=== PATIENT | male | born 1940 | race Caucasian/White ===

== ENCOUNTER 2022-08-18 10:38 | Inpatient (IN) | payer MEDICARE, OTHER ==
[~2022-08-18] VITALS: Ht 177.8 cm; Wt 84.0 kg
[~2022-08-18 10:38] MED LIST: ASPI-1265 PO; CYAN500T71 PO; GLUC1CAP17 PO; IRON PO; LISI2.5T14 PO; OMEP20TA43 PO; POLY17PO10 PO; ROSU40TA PO; VITA200T6 PO; ZET10T PO; ZINC50TA37 PO
[2022-08-18 10:59] LABS: BASOPHILS # (AUTO) 0.1 X10'3 (0-0.2); BASOPHILS % (AUTO) 1.3 % (0-1); EOSINOPHILS # (AUTO) 0.4 X10'3 (0-0.9); EOSINOPHILS % (AUTO) 6.1 % (0-6); HEMATOCRIT 35.8 % (42.0-52.0); HEMOGLOBIN 11.7 g/dl (14.0-17.9); LYMPHOCYTES # (AUTO) 0.8 X10'3 (1.1-4.8); LYMPHOCYTES % (AUTO) 14.1 % (21-51); MEAN CORPUSCULAR HGB CONC 32.7 g/dL (33.0-36.5); MEAN CORPUSCULAR VOLUME 91.9 FL (78-98); MEAN PLATELET VOLUME 7.2 FL (7.4-10.4); MONOCYTES # (AUTO) 0.8 X10'3 (0-0.9); MONOCYTES % (AUTO) 13.4 % (2-12); NEUTROPHILS # (AUTO) 3.9 X10'3 (1.8-7.7); NEUTROPHILS % (AUTO) 65.1 % (42-75); PLATELET COUNT 341 X10'3 (140-440); RED BLOOD COUNT 3.89 X10'6 (4.70-6.10); RED CELL DISTRIBUTION WIDTH 15.4 % (11.5-14.5)
[2022-08-18 11:33] LABS: ALANINE AMINOTRANSFERASE 32 U/L (12-78); ALBUMIN 3.8 G/DL (3.4-5.0); ALBUMIN/GLOBULIN RATIO 1.3 (1.1-1.5); ALKALINE PHOSPHATASE 56 IU/L (46-116); ANION GAP 6 (8-16); ASPARTATE AMINO TRANSFERASE 23 U/L (10-37); BILIRUBIN,TOTAL 0.8 MG/DL (0.1-1.0); BLOOD UREA NITROGEN 28 MG/DL (7-18); BUN/CREATININE RATIO 21.1 (5.4-32.0); CALCIUM 9.3 MG/DL (8.5-10.1); CHLORIDE 106 MMOL/L (99-107); CREATININE 1.33 MG/DL (0.60-1.10); GLUCOSE 113 MG/DL (70-104); MAGNESIUM 2.1 MG/DL (1.5-2.4); POTASSIUM 4.4 MMOL/L (3.5-5.1); SODIUM 141 MMOL/L (135-145); TOTAL PROTEIN 6.8 G/DL (6.4-8.2); eGFR 51 ML/MIN
[2022-08-18] MEDS ORDERED: magnesium Cl slow-release 64mg tablet PO PRN (13:00)
[2022-08-18] MEDS ORDERED: HYDROcodone/acetaminophen 5mg/325mg tablet PO PRN (13:00)
[2022-08-18] MEDS ORDERED: magnesium 4gm in 100ml NS 100 ML IV PRN (13:00)
[2022-08-18] MEDS ORDERED: potassium Cl 40MEQ/1/2NS 520ml 520 ML IV PRN (13:00)
[2022-08-18] MEDS ORDERED: potassium Cl 20 mEq SR tablet PO PRN ×2 (13:00)
[2022-08-18] MEDS ORDERED: ondansetron/PF 4mg/2ml inj IV PRN (13:00)
[2022-08-18] MEDS ORDERED: acetaminophen 325mg tablet PO PRN ×2 (13:00)
[2022-08-18] MEDS ORDERED: RIVA20TA PO (13:12)
[2022-08-18 13:16] LABS: D-DIMER 0.85 MG/L FEU (0-0.50)
[2022-08-18] MEDS ORDERED: morphine 2 MG/ML inj. syringe IV PRN (13:47)
[2022-08-18] MEDS ORDERED: diltiazem-NS 100mg/100ml 100 ML IV SCH (13:57)
--- NOTE | 2022-08-18 17:37 | NUR ---
Patient in room ED 4. I have received report from Reinaldo MARTINI and had the opportunity to ask questions and assume patient care.
--- NOTE | 2022-08-18 18:35 | NUR ---
Problems reprioritized. Patient report given, questions answered & plan of care reviewed with Mehul MARTINI.
[2022-08-18] MEDS ORDERED: heparin, porcine 5000 units/ml vial SQ SCH (20:00)
--- NOTE | 2022-08-18 20:04 | NUR ---
STARCH FACTORY LABORER REPORTS THAT THE PATIENT'S BP HAS BEEN RUNNING LOW 93/37 AND HR FLUCTUATES FROM BABITA TO TACHY. THE PATIENT'S BP CUFF HAS BEEN CHANGED AND BP RETAKEN AND IS IN NORMAL RANGE. HR WILL BE MONITORED FOR FURTHER ACTION REQUIRED. CARDIZEM DRIP CONTINUES WITHOUT INTERRUPTION. THE PATIENT DENIES ANY PAIN OR DISCOMFORT AT THIS TIME.
[2022-08-18 20:17] VITALS: BP 102/58
[2022-08-18 20:45] VITALS: BP 83/30
[2022-08-18 20:55] VITALS: BP 80/34
--- NOTE | 2022-08-18 21:07 | NUR ---
Bp results 80/34. HR 75. Dr. Badillo discontinued the cardizem drip. EKG completed, abnormal result, placed into the chart. Patient is asymptomatic. Denies discomfort or dizziness.
--- NOTE | 2022-08-19 03:24 | NUR ---
Report was received by LIANET Wild
[2022-08-19 06:00] VITALS: BP 119/47
[2022-08-19 06:29] LABS: BASOPHILS # (AUTO) 0.1 X10'3 (0-0.2); BASOPHILS % (AUTO) 1.6 % (0-1); EOSINOPHILS # (AUTO) 0.3 X10'3 (0-0.9); EOSINOPHILS % (AUTO) 7.5 % (0-6); HEMOGLOBIN 10.6 g/dl (14.0-17.9); LYMPHOCYTES # (AUTO) 0.7 X10'3 (1.1-4.8); LYMPHOCYTES % (AUTO) 15.3 % (21-51); MEAN CORPUSCULAR HEMOGLOBIN 31.3 PG (27.0-31.0); MEAN CORPUSCULAR HGB CONC 34.2 g/dL (33.0-36.5); MEAN CORPUSCULAR VOLUME 91.4 FL (78-98); MEAN PLATELET VOLUME 7.4 FL (7.4-10.4); MONOCYTES # (AUTO) 0.7 X10'3 (0-0.9); MONOCYTES % (AUTO) 16.6 % (2-12); NEUTROPHILS # (AUTO) 2.5 X10'3 (1.8-7.7); PLATELET COUNT 277 X10'3 (140-440); RED BLOOD COUNT 3.39 X10'6 (4.70-6.10); RED CELL DISTRIBUTION WIDTH 15.3 % (11.5-14.5); WHITE BLOOD COUNT 4.3 X10'3 (4.5-11.0)
--- NOTE | 2022-08-19 06:37 | NUR ---
Patient in room PCU 3018A. I have received report from Liz RN and had the opportunity to ask questions and assume patient care. Pt is laying supine in bed, resting comfortably. Pt on RA. No s/s of distress, no s/s of pain. BLL, call light within reach, frequently used items in reach, frequent rounding, lubrication worker socks on. Will continue to monitor.
[2022-08-19 06:48] LABS: ALANINE AMINOTRANSFERASE 25 U/L (12-78); ALBUMIN 3.3 G/DL (3.4-5.0); ALBUMIN/GLOBULIN RATIO 1.2 (1.1-1.5); ALKALINE PHOSPHATASE 44 IU/L (46-116); ANION GAP 5 (8-16); ASPARTATE AMINO TRANSFERASE 24 U/L (10-37); BILIRUBIN,TOTAL 0.7 MG/DL (0.1-1.0); BLOOD UREA NITROGEN 30 MG/DL (7-18); BUN/CREATININE RATIO 25.4 (5.4-32.0); CALCIUM 8.9 MG/DL (8.5-10.1); CHLORIDE 105 MMOL/L (99-107); CREATININE 1.18 MG/DL (0.60-1.10); GLUCOSE 101 MG/DL (70-104); POTASSIUM 4.5 MMOL/L (3.5-5.1); SODIUM 140 MMOL/L (135-145); TOTAL CARBON DIOXIDE 29.7 MMOL/L (24-32); eGFR 59 ML/MIN
[2022-08-19 07:23] LABS: ANISOCYTOSIS 1+; PLATELET ESTIMATE NORMAL; TOTAL CELLS COUNTED 100
--- NOTE | 2022-08-19 16:33 | NUR ---
Pt DC'd to personal vehicle, is driving. VSS, pt afebrile, no issues with medication. PIV to RFA removed tip intact, no c/o pain. Discharge education provided, all questioned answered.
[2022-08-19] MEDS ORDERED: rivaroxaban 20mg tablet PO SCH (18:00)
[2022-08-19] MEDS ORDERED: pantoprazole 40mg Tablet.DR PO SCH (20:00)
[2022-08-19] MEDS ORDERED: lisinopril 2.5mg tablet PO SCH (21:00)
[2022-08-19] MEDS ORDERED: atorvastatin 20mg tablet PO SCH (21:00)
[2022-08-20] MEDS ORDERED: aspirin 81mg tab.chew PO SCH (08:00)
== END 2022-08-19 14:44 | disposition home or self-care (01) | DRG 310 ==
LOC: ER 10:39 → ED HOLD 13:01 → EDBEDREQ 16:52 → PCU 3S 17:46
PROVIDERS: ADMIT Internal Medicine; ATTEND Internal Medicine
DX: I48.91 Unspecified atrial fibrillation (principal); E78.00 Pure hypercholesterolemia, unspecified; I10 Essential (primary) hypertension; I25.10 Atherosclerotic heart disease of native coronary artery without angina pectoris; Z66 Do not resuscitate; I65.29 Occlusion and stenosis of unspecified carotid artery; I73.9 Peripheral vascular disease, unspecified; Z79.01 Long term (current) use of anticoagulants; I25.2 Old myocardial infarction; Z87.891 Personal history of nicotine dependence; Z95.1 Presence of aortocoronary bypass graft; Z79.899 Other long term (current) drug therapy; Z79.82 Long term (current) use of aspirin
CPT/HCPCS: 36415; 71045; 80053; 83735; 83880; 84484; 85007; 85025; 85379; 93005; 93306; 99285; A4615; G0378; J1644; J3490

== ENCOUNTER 2022-09-28 10:04 | Outpatient (CLI) | payer MEDICARE, OTHER ==
[~2022-09-28 10:04] MED LIST changes: +RIVA20TA PO
[2022-09-28 11:15] LABS: BASOPHILS # (AUTO) 0.1 X10'3 (0-0.2); EOSINOPHILS # (AUTO) 0.3 X10'3 (0-0.9); EOSINOPHILS % (AUTO) 3.9 % (0-6); HEMOGLOBIN 11.4 g/dl (14.0-17.9); LYMPHOCYTES # (AUTO) 0.8 X10'3 (1.1-4.8); LYMPHOCYTES % (AUTO) 10.8 % (21-51); MEAN CORPUSCULAR HEMOGLOBIN 29.6 PG (27.0-31.0); MEAN CORPUSCULAR HGB CONC 33.6 g/dL (33.0-36.5); MEAN CORPUSCULAR VOLUME 88.2 FL (78-98); MONOCYTES # (AUTO) 0.8 X10'3 (0-0.9); MONOCYTES % (AUTO) 11.4 % (2-12); NEUTROPHILS # (AUTO) 5.2 X10'3 (1.8-7.7); NEUTROPHILS % (AUTO) 72.9 % (42-75); PLATELET COUNT 569 X10'3 (140-440); RED BLOOD COUNT 3.85 X10'6 (4.70-6.10); RED CELL DISTRIBUTION WIDTH 14.8 % (11.5-14.5); WHITE BLOOD COUNT 7.1 X10'3 (4.5-11.0)
[2022-09-28 11:29] LABS: ALBUMIN 3.4 G/DL (3.4-5.0); ANION GAP 9 (8-16); CHLORIDE 101 MMOL/L (99-107); GLUCOSE 115 MG/DL (70-104); POTASSIUM 4.6 MMOL/L (3.5-5.1); SODIUM 138 MMOL/L (135-145); TOTAL CARBON DIOXIDE 28.4 MMOL/L (24-32); eGFR 39 ML/MIN
[2022-09-28 11:30] LABS: APTT 31 SECONDS (22-32); BLOOD UREA NITROGEN 44 MG/DL (7-18); BUN/CREATININE RATIO 25.9 (10.0-20.0)
== END 2022-09-28 23:59 | disposition home or self-care (01) ==
LOC: LAB 10:04 → EDSTATUS 10-02 15:30
PROVIDERS: ATTEND Student in an Organized Health Care Education/Training Program
DX: I25.810 Atherosclerosis of coronary artery bypass graft(s) without angina pectoris (principal); I48.91 Unspecified atrial fibrillation; I65.23 Occlusion and stenosis of bilateral carotid arteries; I48.19 Other persistent atrial fibrillation; E78.5 Hyperlipidemia, unspecified
CPT/HCPCS: 36415; 80048; 85025; 85610; 85730; 92960; A4620; J7030

== ENCOUNTER 2023-04-21 09:39 | Emergency (ER) | payer MEDICARE, OTHER ==
[~2023-04-21] VITALS: Ht 177.8 cm; Wt 84.1 kg
[~2023-04-21 09:39] MED LIST changes: -ASPI-1265 PO; +FERR-116 PO; -IRON PO; -LISI2.5T14 PO; -OMEP20TA43 PO; +SOTA80TA73 PO; +[UNRECOGNIZED DRUG - CODE] PO
[2023-04-21 09:49] VITALS: BP 162/57; PULSE 58; TEMP 97.5; O2SAT 98
--- NOTE | 2023-04-21 10:37 | NUR ---
[facility] NOTIFIED @[id number] THAT I PLACED PT IN RM 12 AND PT STILL NEEDING MSE DONE. KIM
[2023-04-21] MEDS ORDERED: ketorolac tromethamine 15mg/ml inj. IM ONE (11:55)
[2023-04-21] MEDS ORDERED: NAPR-56 PO (11:55)
[2023-04-21 12:10] VITALS: RESP 18
--- NOTE | 2023-04-21 13:22 | NUR ---
INFRASTRUCTURE TECHNICIAN ASSESSMENT REVIEWED BY CELINA LIMON RN; APPROVED
== END 2023-04-21 12:16 | disposition home or self-care (01) ==
LOC: ER 09:39
DX: M79.674 Pain in right toe(s) (principal); I11.0 Hypertensive heart disease with heart failure; Z79.899 Other long term (current) drug therapy
CPT/HCPCS: 96372; 99283; J1885

== ENCOUNTER 2023-04-24 03:57 | Emergency (ER) | payer MEDICARE, OTHER ==
[~2023-04-24] VITALS: Ht 177.8 cm; Wt 85.3 kg
[~2023-04-24 03:57] MED LIST changes: +NAPR-56 PO
[2023-04-24 04:03] VITALS: BP 180/100; PULSE 73; RESP 16; TEMP 98.4; O2SAT 98
== END 2023-04-24 08:06 | disposition left against medical advice (07) ==
LOC: ER 03:58
DX: M79.671 Pain in right foot (principal); Z53.21 Procedure and treatment not carried out due to patient leaving prior to being seen by health care provider
CPT/HCPCS: 99281

== ENCOUNTER 2024-01-17 07:08 | Day surgery (SDC) | payer MEDICARE, OTHER ==
[~2024-01-17] VITALS: Ht 177.8 cm; Wt 82.7 kg
[~2024-01-17 07:08] MED LIST changes: -NAPR-56 PO
[2024-01-17 07:34] VITALS: BP 145/58; PULSE 72; RESP 16
[2024-01-17] MEDS ORDERED: GABA-530 PO (07:40)
[2024-01-17] MEDS ORDERED: ASCO500C14 PO (07:41)
[2024-01-17] MEDS ORDERED: POTA-205 PO (07:42)
[2024-01-17] MEDS ORDERED: Vitamin D3 PO (07:45)
[2024-01-17] MEDS ORDERED: diphenhydrAMINE 50 mg/ml inj ONE (08:11)
[2024-01-17] MEDS ORDERED: MIDAZolam 1 MG/ML 5ML VIAL ONE (08:19)
[2024-01-17] MEDS ORDERED: fentaNYL/PF 50MCG/1 ML 2ML syringe ONE (08:19)
== END 2024-01-17 09:56 | disposition home or self-care (01) ==
LOC: GI LAB 07:08
PROVIDERS: ATTEND Internal Medicine Gastroenterology
DX: R19.5 Other fecal abnormalities (principal); K57.30 Diverticulosis of large intestine without perforation or abscess without bleeding; K29.70 Gastritis, unspecified, without bleeding
CPT/HCPCS: 43239; 45378; 99153; A4620; G0500; J1200; J2250; J3010; J7030; Z7512; 88305; 99152

== ENCOUNTER 2024-09-15 09:33 | Inpatient (IN) | payer MEDICARE, OTHER ==
[~2024-09-15] VITALS: Ht 177.8 cm; Wt 86.0 kg
[~2024-09-15 09:33] MED LIST changes: +ASCO500C14 PO; +GABA-530 PO; -POLY17PO10 PO; +POTA-205 PO; -VITA200T6 PO; +Vitamin D3 PO; -[UNRECOGNIZED DRUG - CODE] PO
[2024-09-15] MEDS: morphine 4 MG/ML inj SYRINge ONE (09:51)
[2024-09-15] MEDS: morphine 4 MG/ML inj SYRINge IV ONE (09:51)
[2024-09-15] MEDS: morphine 10mg/ml inj. IV ONE (10:31)
[2024-09-15] MEDS: ondansetron/PF 4mg/2ml inj IV ONE (10:33)
[2024-09-15 10:41] LABS: BASOPHILS # (AUTO) 0.1 X10'3 (0-0.2); EOSINOPHILS # (AUTO) 0.1 X10'3 (0-0.9); EOSINOPHILS % (AUTO) 1.4 % (0-6); HEMATOCRIT 38.9 % (42.0-52.0); HEMOGLOBIN 12.6 g/dl (14.0-17.9); LYMPHOCYTES # (AUTO) 0.5 X10'3 (1.1-4.8); LYMPHOCYTES % (AUTO) 8.9 % (21-51); MEAN CORPUSCULAR HGB CONC 32.4 g/dL (33.0-36.5); MEAN CORPUSCULAR VOLUME 95.7 FL (78-98); MEAN PLATELET VOLUME 7.1 FL (7.4-10.4); MONOCYTES # (AUTO) 0.7 X10'3 (0-0.9); MONOCYTES % (AUTO) 11.2 % (2-12); NEUTROPHILS # (AUTO) 4.7 X10'3 (1.8-7.7); NEUTROPHILS % (AUTO) 77.5 % (42-75); PLATELET COUNT 276 X10'3 (140-440); RED BLOOD COUNT 4.07 X10'6 (4.70-6.10); RED CELL DISTRIBUTION WIDTH 16.5 % (11.5-14.5)
[2024-09-15] MEDS ORDERED: ondansetron/PF 4mg/2ml inj IV PRN (10:45)
[2024-09-15] MEDS ORDERED: magnesium hydroxide 30ml (MOM) UD suspension PO PRN (10:45)
[2024-09-15] MEDS ORDERED: hydrALAZINE 20mg/ml inj. IV PRN (10:45)
[2024-09-15] MEDS ORDERED: magnesium sulf-water 2g/50mL 50 ML IV PRN (10:45)
[2024-09-15] MEDS ORDERED: magnesium sulf-water 4G/100mL 100 ML IV PRN (10:45)
[2024-09-15] MEDS ORDERED: potassium Cl 40MEQ/1/2NS 520ml 520 ML IV PRN (10:45)
[2024-09-15] MEDS ORDERED: HYDROcodone/acetaminophen 5mg/325mg tablet PO PRN (10:45)
[2024-09-15] MEDS ORDERED: acetaminophen 325mg tablet PO PRN ×2 (10:45)
[2024-09-15] MEDS ORDERED: potassium Cl 20 mEq SR tablet PO PRN ×2 (10:45)
[2024-09-15] MEDS ORDERED: HYDROmorphone/PF 0.2 MG/ML SYRINGE IV PRN (10:45)
[2024-09-15 10:57] LABS: APTT 27 SECONDS (22-32); INR 1.2 INR; PROTHROMBIN TIME 12.2 SECONDS (9.0-12.0)
[2024-09-15 11:00] LABS: ALBUMIN 3.8 G/DL (3.4-5.0); ANION GAP 9 (8-16); BLOOD UREA NITROGEN 30 MG/DL (7-18); BUN/CREATININE RATIO 20.4 (10.0-20.0); CALCIUM 8.6 MG/DL (8.5-10.1); CHLORIDE 102 MMOL/L (99-107); CREATININE 1.47 MG/DL (0.60-1.10); GLUCOSE 108 MG/DL (70-104); POTASSIUM 4.9 MMOL/L (3.5-5.1); SODIUM 137 MMOL/L (135-145); TOTAL CARBON DIOXIDE 26.4 MMOL/L (24-32); eCRCL 39 ML/MIN; eGFR 46 ML/MIN
[2024-09-15] MEDS: normal saline 1000ml 1,000 ML IV SCH (11:46)
[2024-09-15] MEDS ORDERED: EZET10TA48 PO (11:54)
[2024-09-15] MEDS ORDERED: ROSU40TA89 PO (11:54)
[2024-09-15] MEDS ORDERED: PRED20TA PO (11:54)
[2024-09-15] MEDS: HYDROmorphone inj. 0.5 MG/0.5 ML DISP.SYRIN IV PRN (12:16)
[2024-09-15] MEDS: HYDROcodone/acetaminophen 10/325mg tab PO PRN (12:55)
[2024-09-15 16:36] VITALS: RESP 18; O2SAT 97
[2024-09-15] MEDS: LidoCAINE 2% Topical Jelly 11mL syringe (UROJET) TOP STA (17:05)
[2024-09-15] MEDS: HYDROmorphone 1 mg/ml syringe IV STA (17:05)
[2024-09-15 17:18] VITALS: O2SAT 97
[2024-09-15 17:20] VITALS: BP 141/61; PULSE 95; RESP 18; TEMP 98.1; O2SAT 98
[2024-09-15 18:00] VITALS: BP 141/61; PULSE 95; RESP 16; TEMP 98.1; O2SAT 98
[2024-09-15] MEDS: docusate sod 100mg capsule PO SCH (19:00)
[2024-09-15 19:11] LABS: BILIRUBIN,URINE NEGATIVE (Neg); CLARITY,URINE CLEAR (Clear); COLOR,URINE YELLOW (Yellow); GLUCOSE, URINE NEGATIVE (Neg); KETONES,URINE NEGATIVE (Neg); LEUKOCYTE ESTERASE ,URINE NEGATIVE (Neg); NITRITES, URINE NEGATIVE (Neg); OCCULT BLOOD,URINE NEGATIVE (Neg); PROTEIN,URINE 30 mg/dl (Neg); UROBILINOGEN,URINE 0.2 E.U/dL (0.2-1.0)
[2024-09-15 19:13] LABS: UA COLLECTION TYPE CLN CATCH MIDSTREAM
[2024-09-15 19:15] LABS: BACTERIA,URINE FEW /HPF (Neg); RBC,URINE 0-2 /HPF (0-2); SQUAMOUS EPITHELIAL CELL,UR FEW /LPF (FEW); WBC,URINE 0-4 /HPF (0-4)
[2024-09-15] MEDS: K and/or MAG REPLACEMENT MC SCH (20:00)
[2024-09-15 22:00] VITALS: BP 117/64; PULSE 98; RESP 16; TEMP 97.3; O2SAT 98
[2024-09-15] MEDS: atorvastatin 20mg tablet PO SCH (23:15)
[2024-09-15] MEDS: gabapentin 100mg capsule PO SCH (23:16)
[2024-09-15] MEDS: ezetimibe 10mg tablet PO SCH (23:16)
[2024-09-16] VITALS (23 sets, daily range): BP systolic 99–159; BP diastolic 64–82; PULSE 81–99; RESP 12–18; TEMP 97.1–97.8; O2SAT 90–100
[2024-09-16] MEDS: HYDROmorphone 1 mg/ml syringe IV PRN (02:33)
[2024-09-16 05:58] LABS: BASOPHILS % (AUTO) 0.4 % (0-1); EOSINOPHILS % (AUTO) 0.6 % (0-6); HEMATOCRIT 35.3 % (42.0-52.0); HEMOGLOBIN 11.5 g/dl (14.0-17.9); LYMPHOCYTES # (AUTO) 0.4 X10'3 (1.1-4.8); LYMPHOCYTES % (AUTO) 4.9 % (21-51); MEAN CORPUSCULAR HEMOGLOBIN 31.4 PG (27.0-31.0); MEAN CORPUSCULAR HGB CONC 32.5 g/dL (33.0-36.5); MEAN CORPUSCULAR VOLUME 96.6 FL (78-98); MEAN PLATELET VOLUME 7.3 FL (7.4-10.4); MONOCYTES # (AUTO) 0.9 X10'3 (0-0.9); MONOCYTES % (AUTO) 10.6 % (2-12); NEUTROPHILS # (AUTO) 6.9 X10'3 (1.8-7.7); NEUTROPHILS % (AUTO) 83.5 % (42-75); PLATELET COUNT 238 X10'3 (140-440); RED BLOOD COUNT 3.66 X10'6 (4.70-6.10); RED CELL DISTRIBUTION WIDTH 16.3 % (11.5-14.5); WHITE BLOOD COUNT 8.3 X10'3 (4.5-11.0)
[2024-09-16 06:21] LABS: ALANINE AMINOTRANSFERASE 34 U/L (12-78); ALBUMIN 3.2 G/DL (3.4-5.0); ALBUMIN/GLOBULIN RATIO 1.1 (1.1-1.5); ALKALINE PHOSPHATASE 48 IU/L (46-116); ANION GAP 8 (8-16); ASPARTATE AMINO TRANSFERASE 18 U/L (10-37); BILIRUBIN,TOTAL 1.2 MG/DL (0.1-1.0); BLOOD UREA NITROGEN 26 MG/DL (7-18); BUN/CREATININE RATIO 22.6 (10.0-20.0); CALCIUM 8.5 MG/DL (8.5-10.1); CHLORIDE 102 MMOL/L (99-107); CREATININE 1.15 MG/DL (0.60-1.10); GLUCOSE 122 MG/DL (70-104); MAGNESIUM 1.9 MG/DL (1.5-2.4); POTASSIUM 4.9 MMOL/L (3.5-5.1); SODIUM 137 MMOL/L (135-145); TOTAL CARBON DIOXIDE 27.2 MMOL/L (24-32); TOTAL PROTEIN 6.2 G/DL (6.4-8.2); eCRCL 49 ML/MIN; eGFR 61 ML/MIN
[2024-09-16] MEDS ORDERED: labetalol 20mg/4ml (5mg/ml) syringe IV PRN (07:20)
[2024-09-16] MEDS ORDERED: proCHLORperazine 10 MG/2 ml inj IV PRN (07:20)
[2024-09-16] MEDS ORDERED: hydrALAZINE 20mg/ml inj. IV PRN (07:20)
[2024-09-16] MEDS ORDERED: morphine 2 MG/ML inj. syringe IV PRN (07:20)
[2024-09-16] MEDS ORDERED: meperidine/PF 25mg/ml syringe IV PRN (07:20)
[2024-09-16] MEDS ORDERED: ondansetron/PF 4mg/2ml inj IV PRN (07:20)
[2024-09-16] MEDS ORDERED: HYDROmorphone/PF 0.2 MG/ML SYRINGE IV PRN ×2 (07:20)
[2024-09-16] MEDS ORDERED: sevoflurane 250ml liquid IH ONE (07:36)
[2024-09-16] MEDS ORDERED: midazolam 1 mg/ML 2ml injection ONE (07:40)
[2024-09-16] MEDS ORDERED: fentaNYL/PF 50MCG/1 ML 2ML syringe ONE (07:40)
[2024-09-16] MEDS ORDERED: ePHEDrine 50MG/ML INJ. ONE (07:57)
[2024-09-16] MEDS ORDERED: 0.9 % SODIUM CHLORIDE 10 ML VIAL ONE (07:57)
[2024-09-16] MEDS ORDERED: propofol inj 20 ML IV ONE (07:57)
[2024-09-16] MEDS ORDERED: LIDOcaine 2% (20mg/ml) 5ml vial ONE (07:57)
[2024-09-16] MEDS ORDERED: dexamethasone sod phosphate 4mg/ml inj. ONE (07:57)
[2024-09-16] MEDS: cyanocobalamin 500mcg tablet PO SCH (08:00)
[2024-09-16] MEDS: ferrous sulfate 325mg tablet PO SCH (08:00)
[2024-09-16] MEDS: ascorbic acid 500mg tablet PO SCH (08:00)
[2024-09-16] MEDS: zinc sulfate 220mg capsule PO SCH (08:00)
[2024-09-16] MEDS: potassium chloride 10mEq ER tablet PO SCH (08:00)
[2024-09-16] MEDS: sotalol HCl 40mg (1/2 tablet) PO SCH (08:00)
[2024-09-16] MEDS ORDERED: ceFAZolin 1000mg inj ONE ×3 (08:09→09:43)
[2024-09-16] MEDS ORDERED: ondansetron/PF 4mg/2ml inj ONE (08:13)
[2024-09-16] MEDS: morphine 4 MG/ML inj SYRINge IV PRN (10:25)
[2024-09-16] MEDS: acetaminophen 1,000mg/100ml IV 100 ML IV PRN (10:26)
[2024-09-16] MEDS: ringers solution, lacted 1,000 ML IV SCH (13:48)
[2024-09-16] MEDS: calcium carbonate 500mg chew tablet PO PRN (17:35)
[2024-09-16] MEDS: mag hydrox/Alum hydrox/simeth 30ml oral suspension PO PRN (20:40)
[2024-09-16] MEDS: rivaroxaban 20mg tablet PO SCH (21:35)
[2024-09-17] VITALS (7 sets, daily range): BP systolic 87–120; BP diastolic 49–68; PULSE 62–90; RESP 14–18; TEMP 97.2–98.9; O2SAT 93–99
[2024-09-17 07:05] LABS: BASOPHILS % (AUTO) 0.2 % (0-1); EOSINOPHILS % (AUTO) 0.1 % (0-6); HEMOGLOBIN 8.7 g/dl (14.0-17.9); LYMPHOCYTES # (AUTO) 0.4 X10'3 (1.1-4.8); LYMPHOCYTES % (AUTO) 5.1 % (21-51); MEAN CORPUSCULAR HEMOGLOBIN 31.7 PG (27.0-31.0); MEAN CORPUSCULAR HGB CONC 33.6 g/dL (33.0-36.5); MEAN CORPUSCULAR VOLUME 94.3 FL (78-98); MEAN PLATELET VOLUME 7.5 FL (7.4-10.4); MONOCYTES # (AUTO) 1.2 X10'3 (0-0.9); MONOCYTES % (AUTO) 14.4 % (2-12); NEUTROPHILS # (AUTO) 6.6 X10'3 (1.8-7.7); NEUTROPHILS % (AUTO) 80.2 % (42-75); PLATELET COUNT 203 X10'3 (140-440); RED BLOOD COUNT 2.76 X10'6 (4.70-6.10); RED CELL DISTRIBUTION WIDTH 15.8 % (11.5-14.5); WHITE BLOOD COUNT 8.2 X10'3 (4.5-11.0)
[2024-09-17 07:19] LABS: ALANINE AMINOTRANSFERASE 25 U/L (12-78); ALBUMIN 2.4 G/DL (3.4-5.0); ALBUMIN/GLOBULIN RATIO 0.8 (1.1-1.5); ALKALINE PHOSPHATASE 38 IU/L (46-116); ANION GAP 3 (8-16); ASPARTATE AMINO TRANSFERASE 14 U/L (10-37); BLOOD UREA NITROGEN 24 MG/DL (7-18); BUN/CREATININE RATIO 24.5 (10.0-20.0); CALCIUM 7.9 MG/DL (8.5-10.1); CHLORIDE 102 MMOL/L (99-107); CREATININE 0.98 MG/DL (0.60-1.10); GLUCOSE 114 MG/DL (70-104); MAGNESIUM 1.7 MG/DL (1.5-2.4); POTASSIUM 4.5 MMOL/L (3.5-5.1); SODIUM 135 MMOL/L (135-145); TOTAL CARBON DIOXIDE 30.1 MMOL/L (24-32); TOTAL PROTEIN 5.3 G/DL (6.4-8.2); eCRCL 58 ML/MIN; eGFR 73 ML/MIN
[2024-09-17 13:10] LABS: HEMATOCRIT 30.6 % (42.0-52.0); HEMOGLOBIN 10.2 g/dl (14.0-17.9); MEAN CORPUSCULAR HEMOGLOBIN 31.9 PG (27.0-31.0); MEAN CORPUSCULAR HGB CONC 33.2 g/dL (33.0-36.5); MEAN CORPUSCULAR VOLUME 96.1 FL (78-98); MEAN PLATELET VOLUME 7.7 FL (7.4-10.4); PLATELET COUNT 218 X10'3 (140-440); RED BLOOD COUNT 3.18 X10'6 (4.70-6.10); RED CELL DISTRIBUTION WIDTH 16.2 % (11.5-14.5); WHITE BLOOD COUNT 10.4 X10'3 (4.5-11.0)
[2024-09-18 06:00] VITALS: BP 112/46; PULSE 62; RESP 16; TEMP 98.6; O2SAT 93
[2024-09-18 07:35] LABS: BASOPHILS # (AUTO) 0.1 X10'3 (0-0.2); BASOPHILS % (AUTO) 0.8 % (0-1); EOSINOPHILS # (AUTO) 0.1 X10'3 (0-0.9); EOSINOPHILS % (AUTO) 1.4 % (0-6); HEMATOCRIT 28.8 % (42.0-52.0); HEMOGLOBIN 9.5 g/dl (14.0-17.9); LYMPHOCYTES # (AUTO) 0.7 X10'3 (1.1-4.8); LYMPHOCYTES % (AUTO) 9.1 % (21-51); MEAN CORPUSCULAR HEMOGLOBIN 31.4 PG (27.0-31.0); MEAN CORPUSCULAR HGB CONC 32.9 g/dL (33.0-36.5); MEAN CORPUSCULAR VOLUME 95.3 FL (78-98); MEAN PLATELET VOLUME 7.6 FL (7.4-10.4); MONOCYTES # (AUTO) 1.2 X10'3 (0-0.9); MONOCYTES % (AUTO) 14.5 % (2-12); NEUTROPHILS # (AUTO) 5.9 X10'3 (1.8-7.7); NEUTROPHILS % (AUTO) 74.2 % (42-75); PLATELET COUNT 239 X10'3 (140-440); RED BLOOD COUNT 3.02 X10'6 (4.70-6.10); RED CELL DISTRIBUTION WIDTH 16.3 % (11.5-14.5)
[2024-09-18 08:03] LABS: ALANINE AMINOTRANSFERASE 19 U/L (12-78); ALBUMIN 2.7 G/DL (3.4-5.0); ALBUMIN/GLOBULIN RATIO 0.8 (1.1-1.5); ALKALINE PHOSPHATASE 41 IU/L (46-116); ANION GAP 8 (8-16); ASPARTATE AMINO TRANSFERASE 18 U/L (10-37); BILIRUBIN,TOTAL 1.3 MG/DL (0.1-1.0); BLOOD UREA NITROGEN 20 MG/DL (7-18); BUN/CREATININE RATIO 18.7 (10.0-20.0); CALCIUM 8.7 MG/DL (8.5-10.1); CHLORIDE 101 MMOL/L (99-107); CREATININE 1.07 MG/DL (0.60-1.10); GLUCOSE 106 MG/DL (70-104); MAGNESIUM 1.9 MG/DL (1.5-2.4); POTASSIUM 4.4 MMOL/L (3.5-5.1); SODIUM 135 MMOL/L (135-145); TOTAL CARBON DIOXIDE 26.2 MMOL/L (24-32); TOTAL PROTEIN 5.9 G/DL (6.4-8.2); eCRCL 53 ML/MIN; eGFR 66 ML/MIN
[2024-09-18 10:00] VITALS: BP 89/46; PULSE 74; RESP 18; TEMP 97.7; O2SAT 96
[2024-09-18] MEDS: midodrine 5mg tablet PO ONE (10:07)
[2024-09-18 11:00] VITALS: BP 124/64; RESP 16; O2SAT 95
[2024-09-18] MEDS: midodrine 5mg tablet PO SCH (12:00)
[2024-09-18 17:46] VITALS: RESP 14
== END 2024-09-18 18:00 | DRG 480 ==
LOC: ER 09:33 → ED HOLD 10:52 → EDBEDREQTM 13:11 → ORTHO 4S 16:20
PROVIDERS: ADMIT Family Medicine; ATTEND Family Medicine
PROC: 0QS606Z Reposition Right Upper Femur with Intramedullary Internal Fixation Device, Open Approach (ICD-10-PCS; principal; 2024-09-15)
DX: S72.141A Displaced intertrochanteric fracture of right femur, initial encounter for closed fracture (principal); N17.0 Acute kidney failure with tubular necrosis; I48.20 Chronic atrial fibrillation, unspecified; E78.00 Pure hypercholesterolemia, unspecified; I95.1 Orthostatic hypotension; I10 Essential (primary) hypertension; I25.10 Atherosclerotic heart disease of native coronary artery without angina pectoris; I73.9 Peripheral vascular disease, unspecified; X58.XXXA Exposure to other specified factors, initial encounter; Y93.89 Activity, other specified; Y92.89 Other specified places as the place of occurrence of the external cause; Y99.8 Other external cause status; I25.2 Old myocardial infarction; Z95.1 Presence of aortocoronary bypass graft
CPT/HCPCS: 36415; 71045; 73502; 76000; 80048; 80053; 81001; 83735; 85025; 85027; 85610; 85730; 86885; 86900; 86901; 87081; 93005; 96361; 96374; 96375; 96376; 97110; 97161; 97530; 99285; A4314; A4615; A4618; A5200; A6253; A6258; A7000; C1713; G0378; J0131; J0690; J0735; J1100; J1171; J2003; J2250; J2270; J2274; J2405; J2704; J2795; J3010; J3490; J7030

== ENCOUNTER 2024-11-03 04:58 | Inpatient (IN) | payer MEDICARE, OTHER ==
[~2024-11-03] VITALS: Ht 177.8 cm; Wt 85.0 kg
[~2024-11-03 04:58] MED LIST changes: +EZET10TA48 PO; +PRED20TA PO; +ROSU40TA89 PO
--- NOTE | 2024-11-03 05:17 | ELECTROCARDIOGRAPH REPORT ---
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
--- NOTE | 2024-11-03 05:28 | Physician Documentation ---
History of Present Illness ~ Chief Complaint: Chest Pain Stated Complaint: CHEST PAIN,SHORT OF BREATH Time Seen by MD: 05:13 Primary Medical Doctor: DR SHREYAS OROZCO Patient presents to the emergency room for evaluation of left-sided chest and back pain. Symptoms are not there when at rest however when he gets moving he feels short of breath. This is of sudden onset. Patient does have history of atrial fibrillation and takes Xarelto. He did have a right hip replacement two months ago. He does have some swelling in his right leg for which she states his doctor told him that she would go down with time. Asymptomatic at rest. P rior history of CABG. Patient's datapower developer is Dr. Xavier and he states that he had a stress test just two weeks ago that has yet to hear from the results. He states that several studies has been lined up for him to undergo since the stress test. Medication Reconciliation Allergies: Coded Allergies: No Known Allergies (Unverified , 04/21/23) Scheduled Ascorbic Acid (Vitamin C), 1 CAP PO DAILY, (Reported) Cyanocobalamin* (Vitamin B-12*), 2 TAB PO DAILY, (Reported) Ezetimibe (Ezetimibe), 1 TAB PO DAILY, (Reported) Ezetimibe* (Zetia*), 10 MG PO HS, (Reported) Ferrous Sulfate (Iron), 1 TAB PO DAILY, (Reported) Gabapentin (Gabapentin), 1 CAP PO Q8H, (Reported) Gluc Shannon/Chondro Shannon A/Vit C/Mn (Glucosamine 1,500 Complex Cp), 1 EACH PO HS, (Reported) Potassium Chloride (Potassium Chloride), 1 TAB PO DAILY, (Reported) Prednisone* (Prednisone*), 1 TAB PO BID, (Reported) Rivaroxaban (Xarelto), 1 TAB PO HS, (Reported) Rosuvastatin Calcium (Rosuvastatin Calcium), 1 TAB PO DAILY, (Reported) Rosuvastatin Calcium* (Crestor*), 40 MG PO HS, (Reported) Sotalol Hcl* (Betapace*), 0.5 TAB PO Q12H, (Reported) Zinc (Zinc), 50 MG PO DAILY, (Reported) Miscellaneous Medications [Vitamin D3], 200 MCG PO, (Reported) Past Medical History Past Medical History: Coronary Artery Disease, High Cholesterol, Hypertension, Myocardial Infarction, Vascular Disease Past Surgical History: angioplasty, coronary bypass surgery, orthopedic surgeri es Patient History: (Cancer) Malignant carcinoid tumor FATHER, , Age: 76, Cause: Cancer (76) MOTHER, , Age: 31, Cause: Brain tumor (31) FH: stomach cancer FATHER, , Age: 76, Cause: Cancer Alcohol Use: Occasionally Drug Use: none Lives with: Spouse Lives In: Home Occupation: retired Review of Systems ROS All review of systems negative except as per HPI Physical Exam Vital Signs: Temperature: 98.1, Source: Oral, Heart Rate: 58, Respiratory Rate: 16, BP: 128/60, Pulse Oximetry: 100, Weight: 85.000 Oxygen Flow Rate: 0 Physical Exam General: Patient is awake, alert, oriented x4 in no acute distress and well appearing.~ Head: Normocephalic and atraumatic. Eyes: Conjunctival normal. EOMI. PERRL. ENT: Mucous membranes moist. Neck: Supple, trachea is midline. Chest: Clear to auscultation bilaterally without rales, rhonchi, or wheezes. There is no accessory muscle use or retractions. Cardiac: RRR without murmurs, gallops, or rubs.. Extremities: Normal strength. Normal range of motion. Swelling noted to right leg with no calf tenderness to palpation Progress Results/Orders Results/Orders Orders - JAVON PAGAN MD Chest,Single View (11/03/24 05:30) Monitor (11/03/24 05:03) Saline Lock (11/03/24 05:03) Oxygen (11/03/24 05:03) Completed Orders - JAVON PAGAN MD Chest,Single View (11/03/24 05:30) Cbc/Diff (11/03/24 05:03) PBNP (11/03/24 05:03) Electrocardiogram (11/03/24 05:03) CMP (11/03/24 05:03) Hs Troponin I W Calculations (11/03/24 05:03) Hs Troponin I W Calculations (11/03/24 07:03) Hs Troponin I W Calculations (11/03/24 08:03) Procalcitonin (11/03/24 05:13) D-Dimer (11/03/24 05:28) Ua W/Microscopic, Cult If Ind (11/03/24 06:30) Vital Signs 11/03/24 11/03/24 11/03/24 11/03/24 05:04 06:03 06:10 07:31 Temp 98.1 98.1 98.1 Pulse 58 55 53 Resp 16 13 14 18 B/P (MAP) 128/60 105/47 (66) 128/55 (79) Pulse Ox 100 100 98 O2 Flow Rate 0 0 0 Laboratory Tests Test 11/03/24 05:35 11/03/24 06:30 11/03/24 07:03 11/03/24 07:57 White Blood Count 6.0 Red Blood Count 2.58 L Hemoglobin 7.6 L Hematocrit 24.0 L Mean Corpuscular Volume 93.2 Mean Corpuscular Hemoglobin 29.5 Mean Corpuscular Hemoglobin Concent 31.6 L Red Cell Distribution Width 16.7 H Platelet Count 304 Mean Platelet Volume 8.2 Neutrophils (%) (Auto) 74.3 Lymphocytes (%) (Auto) 10.3 L Monocytes (%) (Auto) 11.4 Eosinophils (%) (Auto) 3.1 Basophils (%) (Auto) 0.9 Neutrophils # (Auto) 4.4 Lymphocytes # (Auto) 0.6 L Monocytes # (Auto) 0.7 Eosinophils # (Auto) 0.2 Basophils # (Auto) 0.1 CBC Comment D-Dimer 0.93 H D-Dimer Comment Sodium Level 141 Potassium Level 4.0 Chloride Level 105 Carbon Dioxide Level 27.3 Anion Gap 9 Blood Urea Nitrogen 32 H Creatinine 1.29 H Estimated GFR/1.73 m2 53 BUN/Creatinine Ratio 24.8 H Glucose Level 134 H Calcium Level 8.9 Total Bilirubin 0.7 Aspartate Amino Transf (AST/SGOT) 21 Alanine Aminotransferase (ALT/SGPT) 27 Alkaline Phosphatase 83 Troponin I High Sensitivity 16 18 18 Pro-B-Type Natriuretic Peptide 515 H Total Protein 5.7 L Albumin 3.2 L Globulin 2.5 L Albumin/Globulin Ratio 1.3 Procalcitonin < 0.05 Chemistry Comments Urine Specimen Description Voided Urine Color Yellow Urine Clarity Clear Urine pH 6.0 Urine Specific [place] 1.020 Urine Protein Trace Urine Glucose (UA) Negative Urine Ketones Negative Urine Occult Blood Negative Urine Nitrite Negative Urine Bilirubin Negative Urine Urobilinogen 0.2 Urine Leukocyte Esterase Negative Urine RBC None seen Urine WBC 0-4 Urine Squamous Epithelial Cells Few Urine Bacteria Few Urine Fine Granular Casts 0-3 Urine Mucus None seen Urine Culture Indicated Not ind Volume Urine Centrifuged 10 ml Urine Comment Troponin I High Sens Percent Delta 12 0 Troponin I Hi Sens Absolute Change 2 0 EKG/XRAY/CT/US/VASC/MRI EKG : Additional Comment EKG interpreted by myself shows time of 0505, rate 66, sinus rhythm, left axis deviation, no ST changes, prolonged ID Medical Decision Making Findings Patient presented to the emergency room with chest pain and shortness of breath as per HPI. Differentials include but are not limited to CHF exacerbation, pulmonary embolism, pneumonia, viral syndrome, pneumothorax therefore emergent labs and imaging indicated. Labs pending and to be followed up by oncoming physician, Dr. Deutsch Departure Admitted to Inpatient Unit: yes, to hospitalist Impression: Primary Impression: Chest pain Condition: Guarded Referrals: NO PRIMARY CARE PROVIDER (PCP) Signature Scribe Signature: No scribe Attestation: The note accurately reflects work and decisions made by me.Javon Pagan MD 11/04/24 00:09 JAVON PAGAN MD November 03, 2024 05:28
--- NOTE | 2024-11-03 05:55 | RADIOLOGY REPORT ---
CHEST RADIOGRAPH Indication: CP Technique: Single frontal view of the chest was obtained COMPARISON: DI CHEST,SINGLE VIEW on DOS: 09/15/24, CHEST,SINGLE VIEW on DOS: 08/18/22 FINDINGS: Lines and Tubes: Median sternotomy Lungs: Clear Pleura: No effusion. No pneumothorax. Cardiomediastinal contours: Unremarkable Bones: Unremarkable IMPRESSION: No acute disease.
[2024-11-03 06:12] LABS: BASOPHILS # (AUTO) 0.1 X10'3 (0-0.2); BASOPHILS % (AUTO) 0.9 % (0-1); EOSINOPHILS # (AUTO) 0.2 X10'3 (0-0.9); EOSINOPHILS % (AUTO) 3.1 % (0-6); HEMOGLOBIN 7.6 g/dl (14.0-17.9); LYMPHOCYTES # (AUTO) 0.6 X10'3 (1.1-4.8); LYMPHOCYTES % (AUTO) 10.3 % (21-51); MEAN CORPUSCULAR HEMOGLOBIN 29.5 PG (27.0-31.0); MEAN CORPUSCULAR HGB CONC 31.6 g/dL (33.0-36.5); MEAN CORPUSCULAR VOLUME 93.2 FL (78-98); MEAN PLATELET VOLUME 8.2 FL (7.4-10.4); MONOCYTES # (AUTO) 0.7 X10'3 (0-0.9); MONOCYTES % (AUTO) 11.4 % (2-12); NEUTROPHILS # (AUTO) 4.4 X10'3 (1.8-7.7); NEUTROPHILS % (AUTO) 74.3 % (42-75); PLATELET COUNT 304 X10'3 (140-440); RED BLOOD COUNT 2.58 X10'6 (4.70-6.10); RED CELL DISTRIBUTION WIDTH 16.7 % (11.5-14.5)
[2024-11-03 06:28] LABS: ALANINE AMINOTRANSFERASE 27 U/L (12-78); ALBUMIN 3.2 G/DL (3.4-5.0); ALBUMIN/GLOBULIN RATIO 1.3 (1.1-1.5); ALKALINE PHOSPHATASE 83 IU/L (46-116); ANION GAP 9 (8-16); ASPARTATE AMINO TRANSFERASE 21 U/L (10-37); BILIRUBIN,TOTAL 0.7 MG/DL (0.1-1.0); BLOOD UREA NITROGEN 32 MG/DL (7-18); BUN/CREATININE RATIO 24.8 (10.0-20.0); CALCIUM 8.9 MG/DL (8.5-10.1); CHLORIDE 105 MMOL/L (99-107); CREATININE 1.29 MG/DL (0.60-1.10); GLUCOSE 134 MG/DL (70-104); SODIUM 141 MMOL/L (135-145); TOTAL CARBON DIOXIDE 27.3 MMOL/L (24-32); TOTAL PROTEIN 5.7 G/DL (6.4-8.2); eCRCL 44 ML/MIN; eGFR 53 ML/MIN
[2024-11-03 06:32] LABS: D-DIMER 0.93 MG/L FEU (0-0.50)
[2024-11-03 06:35] LABS: PRO BRAIN NATRIURETIC PEPTIDE 515 PG/ML (0-450)
[2024-11-03 06:57] LABS: BILIRUBIN,URINE NEGATIVE (Neg); CLARITY,URINE CLEAR (Clear); COLOR,URINE YELLOW (Yellow); GLUCOSE, URINE NEGATIVE (Neg); KETONES,URINE NEGATIVE (Neg); LEUKOCYTE ESTERASE ,URINE NEGATIVE (Neg); NITRITES, URINE NEGATIVE (Neg); OCCULT BLOOD,URINE NEGATIVE (Neg); PROTEIN,URINE TRACE mg/dl (Neg); UROBILINOGEN,URINE 0.2 E.U/dL (0.2-1.0)
[2024-11-03 06:58] LABS: UA COLLECTION TYPE VOIDED
[2024-11-03 07:26] LABS: BACTERIA,URINE FEW /HPF (Neg); FINE GRANULAR CAST 0-3 /LPF (NEGATIVE); MUCUS STRANDS NONE SEEN /LPF (Neg); RBC,URINE NONE SEEN /HPF (0-2); SQUAMOUS EPITHELIAL CELL,UR FEW /LPF (FEW); WBC,URINE 0-4 /HPF (0-4)
[2024-11-03] MEDS ORDERED: magnesium sulf-water 2g/50mL 50 ML IV PRN (10:30)
[2024-11-03] MEDS ORDERED: potassium Cl 40MEQ/1/2NS 520ml 520 ML IV PRN (10:30)
[2024-11-03] MEDS ORDERED: HYDROcodone/acetaminophen 5mg/325mg tablet PO PRN (10:30)
[2024-11-03] MEDS ORDERED: acetaminophen 325mg tablet PO PRN (10:30)
[2024-11-03] MEDS ORDERED: ondansetron/PF 4mg/2ml inj IV PRN (10:30)
[2024-11-03] MEDS ORDERED: magnesium hydroxide 30ml (MOM) UD suspension PO PRN (10:30)
[2024-11-03] MEDS ORDERED: mag hydrox/Alum hydrox/simeth 30ml oral suspension PO PRN (10:30)
[2024-11-03] MEDS ORDERED: morphine 2 MG/ML inj. syringe IV PRN (10:30)
[2024-11-03] MEDS ORDERED: potassium Cl 20 mEq SR tablet PO PRN ×2 (10:30)
[2024-11-03] MEDS ORDERED: magnesium sulf-water 4G/100mL 100 ML IV PRN (10:30)
[2024-11-03] MEDS ORDERED: magnesium Cl slow-release 64mg tablet PO PRN (10:30)
--- NOTE | 2024-11-03 10:35 | HISTORY AND PHYSICAL-Residence ---
History & Physical Providers to CC Resident Creating Document: IRINA PEREZ, RES CC: NAY ARGUETA MD ~ History of Present Illness Primary Medical Doctor: DR PRITCHETT Reason for Admit\Complaint: Chest pain and shortness of breaths on exertion History of Present Illness An 84-year-old male with past medical history of AFib, HLD, CAD status post stent placements 20 years ago and CABG in 1950 presented to the ED with annoying chest pain, unable to describe the character of the pain with a severity of 9/10 with radiation to the back present on exertion with associated shortness of breaths. Patient states that there was no increase in chest pain with deep inspiration. Patient's chest pain is relieved on resting for at least 10 minutes. Patient denies palpitations, dizziness, sweating. Patient denies fever, reflux. Patient underwent stress test two weeks ago with Dr. Christopher Xavier which was normal as per conversations with Tiera. Patient was recently admitted for right, was discharged from rehab a couple of weeks ago. Allergies: Coded Allergies: No Known Allergies (Unverified , 04/21/23) Home Medications Home Medications Active Reported Prednisone* (Prednisone) 20 Mg Tablet 1 Tab PO BID Ezetimibe 10 Mg Tablet 1 Tab PO DAILY Rosuvastatin Calcium 40 Mg Tablet 1 Tab PO DAILY [Vitamin D3] 200 Mcg PO Potassium Chloride 10 Meq Tab.prt.sr 1 Tab PO DAILY Vitamin C (Ascorbic Acid) 500 Mg Capsule.sa 1 Cap PO DAILY Gabapentin 100 Mg Capsule 1 Cap PO Q8H Betapace* (Sotalol HCl) 80 Mg Tablet 0.5 Tab PO Q12H 30 Days Iron (Ferrous Sulfate) 325 Mg Tablet 1 Tab PO DAILY 30 Days Xarelto (Rivaroxaban) 20 Mg Tablet 1 Tab PO HS with food Vitamin B-12* (Cyanocobalamin) 500 Mcg Tablet 2 Tab PO DAILY Glucosamine 1,500 Complex Cp (Gluc Shannon/Chondro Shannon A/Vit C/Mn) 1 Each Capsule 1 Each PO HS Zinc 50 Mg Tablet 50 Mg PO DAILY Zetia* (Ezetimibe) 10 Mg Tablet 10 Mg PO HS Crestor* (Rosuvastatin Calcium) 40 Mg Tablet 40 Mg PO HS Past Medical History Past Medical History Atrial fibrillation Hyperlipidemia CAD status post stent placement and CABG Peripheral arterial disease Carotid artery stenosis Obstructive sleep apnea Past Surgical History Surgical History Comment CABG Stent placement Fem-pop bypass Orthopedic surgeries Right carotid endarterectomy Family History Family History: (Cancer) Malignant carcinoid tumor FATHER, , Age: 76, Cause: Cancer (76) MOTHER, , Age: 31, Cause: Brain tumor (31) FH: stomach cancer FATHER, , Age: 76, Cause: Cancer Past Social History Social History Comment Patient sees Dr. Zaida William ([facility]) Dr. Christopher Xavier (octave board assembler) Dr. Lara (vascular surgeon) Lives at home with family Was using a walker/cane after hip surgery but otherwise very active and independent with mobility Smoked two packs per day of cigarettes for 26 years, quit 40 years ago Consumes two glasses of wine every day Does not use marijuana or other illicit drugs. Smoking: Non-Smoker Alcohol Use: Occasionally Drug Use: None Lives with: Spouse Lives In: Home Occupation: retired ROS ROS All systems reviewed in full and all other systems negative except for the pertinent positives mentioned in the HPI Exam Vitals: Vital Signs Date Time Temp Pulse Resp B/P (MAP) Pulse Ox O2 Delivery O2 Flow Rate FiO2 11/03/24 08:35 98.1 66 11 140/61 (87) 98 0 General: General: Alert, awake, oriented, not in acute distress HEENT: PERRLA, no icterus, pallor, lymphadenopathy, carotid bruit Respiratory system: Bilateral vesicular breath sounds heard, no adventitious breath sounds CVS: Surgical linear scar present in the chest, S1-S2 heard, no murmurs/rubs/gallop GI: Soft, nontender, no organomegaly, no guarding/rigidity, bowel sounds present Neuro: No focal neurological deficits present Extremities: 1+ pitting edema on the right leg, No cyanosis clubbing/deformities Skin: Warm and dry, flaky Diagnostic Data Last Recorded Lab Results: 11/03/24 0535 11/03/24 0535 Diagnostic Data: Laboratory Tests Test 11/03/24 05:35 D-Dimer 0.93 MG/L FEU (0-0.50) H D-Dimer Comment Advance Care Planning Advanced Care plannin - 30 Minutes (I spent 20 minutes discussing various resuscitative measures and the patient decided to be full code) Additional Plan Assessment: An 84-year-old male with past medical history of CAD status post CABG and stent placement presented to the ED with chest pain on exertion. Patient was admitted for the evaluation management of stable angina. Plan: Chest pain, under evaluation Underlying CAD status post CABG in 1951 and stent placements 20 years ago Troponins normal, EKG revealed right bundle-branch block with left axis deviation and prolonged MO interval Normal troponins Chest x-ray: No acute cardiopulmonary disease Stress test done on October 26, 2024 as per records from Dr. Xavier's office: No reversible ischemia Echo on November 05: LVEF 55-60%. RVSP 47 mm of mercury. Follow up with repeat echo Consulted Dr. Xavier, awaiting further recommendations Atrial fibrillation, rate controlled [id number]: 5 Continue sotalol 80 mg q.12h and Xarelto 20 mg p.o. HS Peripheral arterial disease History of carotid artery stenosis status post endarterectomy Continue anticoagulation as per above Hyperlipidemia Follow up with lipid panel Continue rosuvastatin and ezetimibe Follow up with A1c and TSH Code status: Full code Diet: Heart healthy DVT prophylaxis: Heparin Anticoagulation: Xarelto Status: Guarded Disposition: Admit to PCU, follow up with echo and re-evaluate with Dr. Xavier for further recommendations Irina Perez MD Internal Medicine, PGY 1 Date of Service: November 03, 2024 Billing Provider: NAY ARGUETA MD,IRINA, RES November 03, 2024 10:35
[2024-11-03 11:42] VITALS: BP 138/59; PULSE 85; RESP 13; TEMP 97.1; O2SAT 99
--- NOTE | 2024-11-03 11:57 | CONSULTATION REPORT ---
History of Present Illness Providers to CC CC: ANA KAY MD ~ Reason for Admit\Admit Dx: Cardiology consultation Refering MD: Hospitalist service History of Present Illness This is an 84-year-old gentleman with past medical history significant for coronary artery disease status post CABG in 1993 followed by a couple of stents, hypertension, hyperlipidemia, carotid artery stenosis status post carotid endarterectomy, severe peripheral artery disease status post right fem-pop bypass surgery as well as multiple stents in the past, obstructive sleep apnea on CPAP. He had a recent right hip surgery and got home from rehab a couple of weeks ago. Has been ambulatory with a walker/cane. Since being in rehab has been sleeping in his recliner but last night was able to sleep in bed lying flat. Denies orthopnea. Complains of significant dyspnea on exertion onset a couple of days ago with associated chest pressure that radiates to his back. Patient was last seen in the office, August 27, 2024. Complained of increased shortness for breath with chest pain at that time. Pain radiating to the left upper extremity and started a few months prior. He underwent a stress test October 26, 2024 that was without reversible ischemia. Last echocardiogram November 06, 2023 showed an overall LVEF 55-60%. RVSP 47 mm of mercury. No significant valvular heart disease. Allergies: Coded Allergies: No Known Allergies (Unverified , 04/21/23) Home Medications Home Medications Active Reported Prednisone* (Prednisone) 20 Mg Tablet 1 Tab PO BID Ezetimibe 10 Mg Tablet 1 Tab PO DAILY Rosuvastatin Calcium 40 Mg Tablet 1 Tab PO DAILY [Vitamin D3] 200 Mcg PO Potassium Chloride 10 Meq Tab.prt.sr 1 Tab PO DAILY Vitamin C (Ascorbic Acid) 500 Mg Capsule.sa 1 Cap PO DAILY Gabapentin 100 Mg Capsule 1 Cap PO Q8H Betapace* (Sotalol HCl) 80 Mg Tablet 0.5 Tab PO Q12H 30 Days Iron (Ferrous Sulfate) 325 Mg Tablet 1 Tab PO DAILY 30 Days Xarelto (Rivaroxaban) 20 Mg Tablet 1 Tab PO HS with food Vitamin B-12* (Cyanocobalamin) 500 Mcg Tablet 2 Tab PO DAILY Glucosamine 1,500 Complex Cp (Gluc Shannon/Chondro Shannon A/Vit C/Mn) 1 Each Capsule 1 Each PO HS Zinc 50 Mg Tablet 50 Mg PO DAILY Zetia* (Ezetimibe) 10 Mg Tablet 10 Mg PO HS Crestor* (Rosuvastatin Calcium) 40 Mg Tablet 40 Mg PO HS Past Medical History Medical History Comment Coronary artery disease with history of CABG and stenting Hypertension Hyperlipidemia Carotid artery stenosis status post endarterectomy Peripheral arterial disease Obstructive sleep apnea Past Surgical History Surgical History Comment CABG Peripheral angiogram/angioplasty Fem-pop bypass Right carotid endarterectomy Orthopedic Past Family History Family History: (Cancer) Malignant carcinoid tumor FATHER, , Age: 76, Cause: Cancer (76) MOTHER, , Age: 31, Cause: Brain tumor (31) FH: stomach cancer FATHER, , Age: 76, Cause: Cancer Past Social History Social History Comment Does not currently smoke. Alcohol occasionally. No recreational drugs. Lives with spouse who does have some mild dementia (per pt) Physical Exam Last Vital Signs Recorded: RN Vital Signs have been reviewed: Yes, Temperature: 97.1, Source: Oral, Heart Rate: 85, Respiratory Rate: 13, BP: 138/59, Pulse Oximetry: 99, Weight: 85.000 Physical Exam General: Awake, alert, oriented. No apparent distress Neck: Supple. Normal range of motion. No JVD Respiratory: Lungs are clear to auscultation bilaterally. No respiratory distress. Chest: Normal shape and size. No accessory muscle use. Cardiovascular: Regular rate and rhythm. S1-S2. No murmur, gallop, rub. Gastrointestinal: Abdomen is soft. Nontender to palpation. Bowel sounds present. Extremities: There is some slight pedal edema on the right. None on the left. Neurologic: Alert and oriented x4. Nonfocal Psychiatric: Normal mood and affect. Skin: Normal color. Warm and dry. Review of Systems ROS Review of systems negative except documented in HPI. Results EKG EKG Sinus rhythm with right bundle-branch block and left anterior fascicular block. First-degree heart block with LA interval 268 milliseconds Diagram Lab Result Diagram: 11/03/24 0535 11/03/24 0535 Assessment/Plan Additional Plan This is an 84-year-old male who presented with increased shortness for breath and chest pain. The following is his problem list: Angina High sensitivity troponins negative Stress test in the office October 26, 2024 without reversible ischemia Awaiting echocardiogram Significant shortness for breath NT proBNP only mildly elevated at 515 Recommend echocardiogram Other comorbidities History of carotid artery stenosis History of CAD with prior CABG and stent History of hypertension History of hyperlipidemia History of peripheral arterial disease Supervising MD Supervising Physician: ROBERTO Russo NP November 03, 2024 11:57
[2024-11-03 15:00] VITALS: BP 125/55; PULSE 92; RESP 16; TEMP 97.6; O2SAT 96
[2024-11-03 18:00] VITALS: BP 123/45; PULSE 73; RESP 16; TEMP 98.7; O2SAT 98
[2024-11-03 19:19] LABS: HEMOGLOBIN A1C 5.1 % (4.5-6.2)
[2024-11-03 19:30] LABS: CHOL/HDL RATIO 2.7 (0.00-4.99); CHOLESTEROL 92 MG/DL (0-200); HDL CHOLESTEROL 34 MG/DL (35-60); LDL CHOLESTEROL 40 MG/DL (50-100); THYROID STIMULATING HORMONE 4.22 ulU/ml (0.34-4.50); TRIGLYCERIDES 103 MG/DL (20-135)
[2024-11-03 20:00] VITALS: RESP 16; O2SAT 98
[2024-11-03] MEDS: K and/or MAG REPLACEMENT MC SCH (20:00)
[2024-11-03] MEDS ORDERED: heparin, porcine 5000 units/ml vial SQ SCH (20:00)
[2024-11-03] MEDS: sotalol HCl 40mg (1/2 tablet) PO SCH (20:58)
[2024-11-03] MEDS: docusate sod 100mg capsule PO SCH (20:58)
[2024-11-03] MEDS: ezetimibe 10mg tablet PO SCH (20:59)
[2024-11-03] MEDS: VIT C PO SCH (21:00)
[2024-11-03] MEDS: [UNRECOGNIZED DRUG - OTHER] PO SCH (21:00)
[2024-11-03] MEDS: rivaroxaban 20mg tablet PO SCH (21:00)
[2024-11-03] MEDS: GLUC SU PO SCH (21:00)
[2024-11-03] MEDS: CHONDRO SU A PO SCH (21:00)
[2024-11-03] MEDS: atorvastatin 20mg tablet PO SCH (21:04)
[2024-11-03 22:00] VITALS: BP 133/70; PULSE 61; RESP 14; TEMP 97.5; O2SAT 99
[2024-11-04] MEDS: gabapentin 100mg capsule PO SCH (00:52)
[2024-11-04 02:00] VITALS: BP 115/53; PULSE 52; RESP 15; TEMP 97.1; O2SAT 99
[2024-11-04 03:06] LABS: BILIRUBIN,URINE NEGATIVE (Neg); CLARITY,URINE CLEAR (Clear); COLOR,URINE YELLOW (Yellow); GLUCOSE, URINE NEGATIVE (Neg); KETONES,URINE NEGATIVE (Neg); LEUKOCYTE ESTERASE ,URINE NEGATIVE (Neg); NITRITES, URINE NEGATIVE (Neg); OCCULT BLOOD,URINE NEGATIVE (Neg); PROTEIN,URINE NEGATIVE (Neg); UROBILINOGEN,URINE 0.2 E.U/dL (0.2-1.0)
[2024-11-04 03:09] LABS: UA COLLECTION TYPE NON-SPECIFIED
[2024-11-04 07:00] VITALS: BP 97/50; PULSE 58; RESP 18; TEMP 98.3; O2SAT 99
[2024-11-04 07:07] LABS: EOSINOPHILS # (AUTO) 0.2 X10'3 (0-0.9); EOSINOPHILS % (AUTO) 3.7 % (0-6); HEMATOCRIT 23.6 % (42.0-52.0); HEMOGLOBIN 7.9 g/dl (14.0-17.9); LYMPHOCYTES # (AUTO) 0.7 X10'3 (1.1-4.8); LYMPHOCYTES % (AUTO) 13.4 % (21-51); MEAN CORPUSCULAR HEMOGLOBIN 30.7 PG (27.0-31.0); MEAN CORPUSCULAR HGB CONC 33.5 g/dL (33.0-36.5); MEAN CORPUSCULAR VOLUME 91.6 FL (78-98); MEAN PLATELET VOLUME 7.8 FL (7.4-10.4); MONOCYTES # (AUTO) 0.7 X10'3 (0-0.9); NEUTROPHILS # (AUTO) 3.5 X10'3 (1.8-7.7); NEUTROPHILS % (AUTO) 68.9 % (42-75); PLATELET COUNT 279 X10'3 (140-440); RED BLOOD COUNT 2.57 X10'6 (4.70-6.10); RED CELL DISTRIBUTION WIDTH 16.3 % (11.5-14.5)
[2024-11-04 07:18] LABS: ANION GAP 6 (8-16); BLOOD UREA NITROGEN 26 MG/DL (7-18); BUN/CREATININE RATIO 23.2 (10.0-20.0); CALCIUM 8.7 MG/DL (8.5-10.1); CHLORIDE 105 MMOL/L (99-107); CREATININE 1.12 MG/DL (0.60-1.10); GLUCOSE 109 MG/DL (70-104); POTASSIUM 4.3 MMOL/L (3.5-5.1); SODIUM 139 MMOL/L (135-145); eCRCL 51 ML/MIN; eGFR 62 ML/MIN
[2024-11-04] MEDS: cyanocobalamin 500mcg tablet PO SCH (07:47)
[2024-11-04] MEDS: ascorbic acid 500mg tablet PO SCH (07:47)
[2024-11-04] MEDS: zinc sulfate 220mg capsule PO SCH (07:48)
[2024-11-04] MEDS: ferrous sulfate 325mg tablet PO SCH (07:48)
[2024-11-04 08:00] VITALS: RESP 20; O2SAT 98
[2024-11-04 11:00] VITALS: BP 150/55; PULSE 71; RESP 16; TEMP 97.1; O2SAT 98
--- NOTE | 2024-11-04 12:05 | CARDIOLOGY REPORT ---
APPROVED REPORT EXAM: Comprehensive 2D, Doppler, and color-flow Echocardiogram. Patient Location: [facility]8 B Blood Pressure: 138/59 mmHg Heart Rate: 70s bpm Rhythm: ATRIAL FIBRILLATION Indications SHORTNESS OF BREATH ATRIAL FIBRILLATION CABG X2 1993 STENTS X2- -1999 HYPERLIPIDEMIA HYPERTENSION Spray Machine Operator: Yefri Xavier MD Previous echo: 11/06/23 CVC (EF 55-60%, no MR, mild TR, tr PI) 2D Dimensions RVDd 3.8 cm LVOT Diameter 1.95 (1.8-2.4cm) CO 5.2 L/min M-Mode Dimensions IVSd 1.09 (0.7-1.1cm) LVDd 4.59 (4.0-5.6cm) Aortic Root 3.70 (2.2-3.7cm) PWd 1.52 (0.7-1.1cm) IVSs 1.40 cm LVDs 2.84 (2.0-3.8cm) FS (%) 38 % PWs 2.02 cm ESV(Teich) 30.6 ml LVEF(%) 68 (>50%) Aortic Valve AoV Peak Chaz. 149.8 cm/s AoV VTI 28.7 cm AO Peak GR. 9.0 mmHg AO Mean GR. 4 mmHg LVOT VTI 32.56 cm LVOT Peak Chaz. 127.3 cm/s RAIMUNDO(VTI)/BSA 3.38 cm2/m2 RAIMUNDO (VTI) 3.38 cm2 AI P 1/2 Time 460 ms Mitral Valve MV Peak Gr. 7 mmHg MV PHT 52 ms MVA (PHT) 4.23 cm2 MV OCcs777.0 cm/s Tricuspid Valve TR P. Velocity 326 cm/s RAP ESTIMATE 10 mmHg TR Peak Gr. 43 mmHg RVSP 53 mmHg LEFT VENTRICLE Normal LV size and wall thickness. Overall systolic function is normal. LVEF is 65-70%. RIGHT VENTRICLE RV is mildly dilated with normal function. RVSP is estimated at 53 mmHg. ATRIA The left atrium size appears normal. AORTIC VALVE Trileaflet AV appears mildly sclerotic without stenosis. Mild insufficiency. MITRAL VALVE Moderate posterior MV annulus calcification without stenosis. Mild regurgitation. TRICUSPID VALVE TV appears structurally normal with mild regurgitation. PULMONIC VALVE Normal PV without stenosis, physiologic insufficiency. GREAT VESSELS Aortic root is normal in size. PERICARDIUM Normal pericardium. No effusion. Other Information Study Quality: Adequate, but difficult due to body habitus, patient unable to remain in left lateral decubitus position due to back pain. Conclusion Normal LV size and wall thickness. Overall systolic function is normal. LVEF is 65-70%. RV is mildly dilated with normal function. RVSP is estimated at 53 mmHg. The left atrium size appears normal. Trileaflet AV appears mildly sclerotic without stenosis. Mild insufficiency. Moderate posterior MV annulus calcification without stenosis. Mild regurgitation. TV appears structurally normal with mild regurgitation. Normal pericardium. No effusion.
[2024-11-04] MEDS ORDERED: ISOS10TA94 PO (12:52)
[2024-11-04] MEDS ORDERED: NITR0.4T48 SL (12:52)
--- NOTE | 2024-11-04 14:15 | DISCHARGE SUMMARY-Residence ---
Discharge Summary Providers to CC Resident Creating Document: IRINA CARDONA, RES CC: NAY ARGUETA MD ~ Discharge Summary Assessment An 84-year-old male with past medical history of CAD status post CABG and stent placement presented to the ED with chest pain on exertion. Patient was admitted for the evaluation management of stable angina. Admission Diagnosis: Chest pain, Stable Angina Hospital Course DATE OF ADMISSION: 11/03/24 DATE OF DISCHARGE: 11/04/24 Discharge Diagnosis\Comment: Stable angina Bifascicular block CAD status post CABG and stent placements Atrial fibrillation, rate controlled Peripheral arterial disease History of carotid artery stenosis status post endarterectomy Hyperlipidemia Operations\Procedures: None Consultants: Dr. Christopher Xavier (operations associate) Complications: None Condition on DC: Stable New Medications: Isosorbide Mononitrate (Isosorbide Mononitrate) 10 Mg Tablet 1 TAB PO DAILY for 30 Days, #30 TAB 0 Refills Nitroglycerin (Nitroglycerin) 0.4 Mg Tab.subl 0.4 MG SL q5min for chest pain, #20 TAB Take one tablet every 5 minutes for 3 times when you have chest pain Continued Medications: Ascorbic Acid (Vitamin C) 500 Mg Capsule.sa 1 CAP PO DAILY, CAP 0 Refills Cyanocobalamin* (Vitamin B-12*) 500 Mcg Tablet 2 TAB PO DAILY Ezetimibe* (Zetia*) 10 Mg Tablet 10 MG PO HS Ferrous Sulfate (Iron) 325 Mg Tablet 1 TAB PO DAILY for 30 Days, #30 TAB 0 Refills Gabapentin (Gabapentin) 100 Mg Capsule 1 CAP PO Q8H, CAP 0 Refills Gluc Shannon/Chondro Shannon A/Vit C/Mn (Glucosamine 1,500 Complex Cp) 1 Each Capsule 1 EACH PO HS, CAPSULE Potassium Chloride (Potassium Chloride) 10 Meq Tab.prt.sr 1 TAB PO DAILY, TAB 0 Refills Prednisone* (Prednisone*) 20 Mg Tablet 1 TAB PO BID Rivaroxaban (Xarelto) 20 Mg Tablet 1 TAB PO HS, TAB 0 Refills with food Rosuvastatin Calcium* (Crestor*) 40 Mg Tablet 40 MG PO HS Sotalol Hcl* (Betapace*) 80 Mg Tablet 0.5 TAB PO Q12H for 30 Days, #60 TAB 0 Refills [Vitamin D3] () 200 MCG PO Zinc (Zinc) 50 Mg Tablet 50 MG PO DAILY Discontinued Medications: Ezetimibe (Ezetimibe) 10 Mg Tablet 1 TAB PO DAILY Rosuvastatin Calcium (Rosuvastatin Calcium) 40 Mg Tablet 1 TAB PO DAILY Discharge Summary: An 84-year-old male with multiple medical comorbidities presented to the ED with chest pain on exertion associated with shortness of breaths. Patient was further evaluated, troponins were negative EKG revealed bifascicular block. Therefore patient's operations associate that he sees outpatient Dr. Christopher Xavier was consulted, S patient is Lexiscan two weeks ago in the outpatient was negative repeat echo was ordered. Patient's other medical conditions were managed as per home meds. Patient continued to be stable therefore patient is discharged home Physical examination at discharge: General: Alert, awake, oriented, not in acute distress HEENT: PERRLA, no icterus, pallor, lymphadenopathy, carotid bruit Respiratory system: Bilateral vesicular breath sounds heard, no adventitious breath sounds CVS: Surgical linear scar present in the chest, S1-S2 heard, no murmurs/rubs/gallop GI: Soft, nontender, no organomegaly, no guarding/rigidity, bowel sounds present Neuro: No focal neurological deficits present Extremities: 1+ pitting edema on the right leg, No cyanosis clubbing/deformities Skin: Warm and dry, flaky Labs at discharge: WBC: 5, H/H: 7.9/23.6, platelet count: 279 Sodium: 139, potassium: 4.3, BUN: 26, creatinine: 1.12 Imaging: Echo: Normal LV size and wall thickness. Overall systolic function is normal. LVEF is 65-70%. RV is mildly dilated with normal function. RVSP is estimated at 53 mmHg Chest x-ray: No acute disease. Discharge medications can be found above patient is discharged home with the following recommendations: Follow up with your primary care within two weeks of discharge. Follow up with your operations associate within two weeks of discharge and discussed about possible cardiac catheterization. We gave you sublingual nitroglycerin that you can take one tablet every 5 minutes for 3 times when you have chest pain We also gave you isosorbide mononitrate (Imdur) once a day tablet for chest pain. Return to ER in view of chest pain, palpitations, shortness of breath, dizziness *Problems/Diagnosis: (1) Stable angina Total Time Spent on D/C: > 30 Minutes Date of Service: November 04, 2024 Billing Provider: NAY ARGUETA MD, SIVA, RES November 04, 2024 14:15
== END 2024-11-04 14:13 | disposition home or self-care (01) | DRG 303 ==
LOC: ER 04:59 → ED HOLD 08:11 → PCU 3S 11:39
PROVIDERS: ADMIT Family Medicine; ATTEND Family Medicine
DX: I25.118 Atherosclerotic heart disease of native coronary artery with other forms of angina pectoris (principal); I45.2 Bifascicular block; R07.89 Other chest pain; E78.00 Pure hypercholesterolemia, unspecified; I73.9 Peripheral vascular disease, unspecified; I48.91 Unspecified atrial fibrillation; G47.33 Obstructive sleep apnea (adult) (pediatric); I10 Essential (primary) hypertension; I25.2 Old myocardial infarction; Z79.899 Other long term (current) drug therapy; Z79.01 Long term (current) use of anticoagulants; Z95.1 Presence of aortocoronary bypass graft; Z95.5 Presence of coronary angioplasty implant and graft
CPT/HCPCS: 36415; 71045; 80048; 80053; 80061; 81001; 81003; 83036; 83735; 83880; 84132; 84145; 84443; 84484; 85025; 85379; 87081; 93005; 93306; 99285; G0378

== ENCOUNTER 2024-11-24 11:01 | Day surgery (SDC) | payer MEDICARE, OTHER ==
[2024-11-20 09:51] LABS: BASOPHILS # (AUTO) 0.1 X10'3 (0-0.2); BASOPHILS % (AUTO) 1.5 % (0-1); EOSINOPHILS # (AUTO) 0.2 X10'3 (0-0.9); EOSINOPHILS % (AUTO) 5.5 % (0-6); HEMATOCRIT 25.5 % (42.0-52.0); HEMOGLOBIN 8.1 g/dl (14.0-17.9); LYMPHOCYTES # (AUTO) 0.5 X10'3 (1.1-4.8); LYMPHOCYTES % (AUTO) 12.8 % (21-51); MEAN CORPUSCULAR HEMOGLOBIN 28.9 PG (27.0-31.0); MEAN CORPUSCULAR HGB CONC 31.7 g/dL (33.0-36.5); MEAN CORPUSCULAR VOLUME 91.1 FL (78-98); MEAN PLATELET VOLUME 7.5 FL (7.4-10.4); MONOCYTES # (AUTO) 0.5 X10'3 (0-0.9); MONOCYTES % (AUTO) 13.5 % (2-12); NEUTROPHILS # (AUTO) 2.4 X10'3 (1.8-7.7); NEUTROPHILS % (AUTO) 66.7 % (42-75); PLATELET COUNT 310 X10'3 (140-440); RED CELL DISTRIBUTION WIDTH 17.7 % (11.5-14.5); WHITE BLOOD COUNT 3.6 X10'3 (4.5-11.0)
[2024-11-20 10:00] LABS: APTT 25 SECONDS (22-32); INR 1.2 INR; PROTHROMBIN TIME 11.7 SECONDS (9.0-12.0)
[2024-11-20 10:02] LABS: ALBUMIN 3.7 G/DL (3.4-5.0); ANION GAP 5 (8-16); BLOOD UREA NITROGEN 24 MG/DL (7-18); BUN/CREATININE RATIO 17.5 (10.0-20.0); CALCIUM 9.2 MG/DL (8.5-10.1); CHLORIDE 105 MMOL/L (99-107); CHOL/HDL RATIO 5.1 (0.00-4.99); CHOLESTEROL 243 MG/DL (0-200); CREATININE 1.37 MG/DL (0.60-1.10); GLUCOSE 104 MG/DL (70-104); HDL CHOLESTEROL 48 MG/DL (35-60); LDL CHOLESTEROL 156 MG/DL (50-100); POTASSIUM 4.2 MMOL/L (3.5-5.1); SODIUM 138 MMOL/L (135-145); TOTAL CARBON DIOXIDE 28.1 MMOL/L (24-32); TRIGLYCERIDES 190 MG/DL (20-135); eGFR 50 ML/MIN
[2024-11-24] VITALS (10 sets, daily range): BP systolic 100–132; BP diastolic 49–57; PULSE 47–61; RESP 13–18; TEMP 97.9; O2SAT 96–100
[~2024-11-24] VITALS: Ht 177.8 cm; Wt 85.4 kg
[~2024-11-24 11:01] MED LIST changes: -EZET10TA48 PO; +ISOS10TA94 PO; +NITR0.4T48 SL; -ROSU40TA89 PO
[2024-11-24] MEDS ORDERED: ISOS60TA71 PO (13:01)
--- NOTE | 2024-11-24 13:04 | ELECTROCARDIOGRAPH REPORT ---
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 Marie Xavier Measurements Intervals [place] Rate: 44 P: 29 NC: 240 QRS: -32 QRSD: 145 T: -21 QT: 514 QTc: 440 Interpretive Statements Sinus bradycardia Prolonged NC interval Right bundle branch block Probable lateral infarct, old Electronically Signed On 11-25-2024 7:00:[address] Marie Xavier Please click the below link to view image of tracing.
[2024-11-24] MEDS: diphenhydrAMINE 25mg capsule PO PRN (13:54)
[2024-11-24] MEDS: normal saline 1,000 ML IV SCH (13:54)
[2024-11-24] MEDS: LORazepam 0.5 MG tablet PO PRN (13:54)
[2024-11-24] MEDS ORDERED: verapamil 2.5 mg/ml inj IV ONE (14:57)
[2024-11-24] MEDS ORDERED: LIDOcaine 1% (10mg/ml) 2ml vial ONE (14:57)
[2024-11-24] MEDS ORDERED: heparin 1,000unit/ml 10ml vial 0 ML ONE (14:58)
[2024-11-24] MEDS ORDERED: fentaNYL/PF 50MCG/1 ML 2ML syringe ONE (14:58)
[2024-11-24] MEDS ORDERED: nitroGLYCERIN 500mcg/5mL D5W 0 ML IV ONE (14:58)
[2024-11-24] MEDS ORDERED: iohexol 350MG/ML 100ml bottle IV ONE (14:58)
[2024-11-24] MEDS ORDERED: midazolam 1 mg/ML 2ml injection ONE (14:58)
[2024-11-24] MEDS ORDERED: LIDOcaine 1% 30ml preserv. free vial ONE (15:05)
[2024-11-24] MEDS ORDERED: iohexol 350 MG/ML 50ML vial IV ONE ×2 (15:25→15:28)
[2024-11-24] MEDS ORDERED: HYDROcodone/acetaminophen 10/325mg tab PO PRN (16:10)
[2024-11-24] MEDS ORDERED: ondansetron/PF 4mg/2ml inj IV PRN (16:10)
[2024-11-24] MEDS ORDERED: proCHLORperazine 10 MG/2 ml inj IV PRN (16:10)
[2024-11-24] MEDS ORDERED: HYDROcodone/acetaminophen 5mg/325mg tablet PO PRN (16:10)
--- NOTE | 2024-12-05 10:53 | CARDIOLOGY REPORT ---
DATE OF SERVICE: 11/24/2024 DICTATING PHYSICIAN: Marie Xavier MD CARDIAC CATHETERIZATION REPORT DATE OF STUDY: 11/24/2024 PROCEDURES: * Left heart catheterization. * Selective coronary angiography. * Left ventriculography. * Selective left internal mammary artery angiography. * Selective coronary artery bypass graft angiography x 1. * Aortic root angiography. * Conscious sedation monitoring time for 30 minutes. INDICATION: Continuous chest pain. PHYSICIAN: Marie Xavier MD DESCRIPTION OF PROCEDURE: After informed consent was obtained, the patient was brought to the lab where he was prepped and draped in the usual sterile fashion. A 6-Khmer sheath was inserted into the right femoral artery. Thereafter, using a JL4 followed by JR4 catheter, selective coronary angiography was performed. The JR4 catheter was then manipulated and selective left internal mammary artery angiography was performed. Next, using a multipurpose catheter, the vein graft to the right coronary artery was intubated and selective angiography of the vein graft was performed. Thereafter, the pigtail catheter was reintroduced into the ascending aorta and aortic root angiography performed. HEMODYNAMICS: For the patient's hemodynamics, please refer to the event log. Left ventriculography was performed. Left ventricular end diastolic pressure was 17 mmHg. There was no significant gradient across the aortic valve on catheter pullback. FINDINGS: The left anterior descending coronary artery is occluded. This is chronic as compared to the patient's angiography in 2005. The circumflex coronary artery is a normal caliber vessel with mild luminal irregularities. Unchanged since 2005. The right coronary artery is a small nondominant vessel. Unchanged since 2005. The vein graft to the distal RCA is occluded. This was patent and stented in 2005. Left ventriculography revealed the presence of normal left ventricular function. Aortic root angiography did not reveal any other grafts. IMPRESSION: * Occluded LAD with a patent SANTOS to the LAD, (unchanged since 2005). * Mild luminal irregularities of the circumflex coronary artery, (unchanged since 2005). * Small nondominant right coronary artery, (unchanged since 2005). * Vein graft to the right coronary artery is occluded. This was present in 2005 and stented at that time. * Normal left ventricular function. Left ventricular end diastolic pressure is 17 mmHg. Marie Xavier MD TID: [id number] RECEIPT: [id number] MILE
== END 2024-11-24 19:00 | disposition home or self-care (01) ==
LOC: SSTAY O 11:01
PROVIDERS: ATTEND Student in an Organized Health Care Education/Training Program
DX: R07.9 Chest pain, unspecified (principal); I25.810 Atherosclerosis of coronary artery bypass graft(s) without angina pectoris; I10 Essential (primary) hypertension; I39 Endocarditis and heart valve disorders in diseases classified elsewhere; I48.91 Unspecified atrial fibrillation; Z79.899 Other long term (current) drug therapy; K21.9 Gastro-esophageal reflux disease without esophagitis; E78.5 Hyperlipidemia, unspecified
CPT/HCPCS: 36415; 80048; 80061; 83695; 85025; 85610; 85730; 93005; 93459; 93567; 99152; 99153; A6258; C1751; J1644; J2003; J2250; J3010; J7030; Q0163; Q9967; Z7610; J3490

== ENCOUNTER 2025-01-01 10:00 | Day surgery (SDC) | payer MEDICARE, OTHER ==
[2024-12-30 09:29] LABS: MEAN PLATELET VOLUME 7.7 FL (7.4-10.4); RED CELL DISTRIBUTION WIDTH 22.2 % (11.5-14.5)
[2024-12-30 09:33] LABS: CREATININE 1.66 MG/DL (0.60-1.10); TOTAL CARBON DIOXIDE 25.2 MMOL/L (24-32); eGFR 40 ML/MIN
[2024-12-30 09:36] LABS: APTT 23 SECONDS (22-32); INR 1.1 INR
[2024-12-30 10:37] LABS: ELLIPTOCYTES FEW; PLATELET ESTIMATE NORMAL
[2025-01-01] VITALS (9 sets, daily range): BP systolic 118–142; BP diastolic 55–60; PULSE 48–68; RESP 15–16; TEMP 98.2; O2SAT 93–98
[~2025-01-01] VITALS: Ht 177.8 cm; Wt 82.9 kg
[~2025-01-01 10:00] MED LIST changes: -ISOS10TA94 PO; +ISOS60TA71 PO
--- NOTE | 2025-01-01 10:41 | ELECTROCARDIOGRAPH REPORT ---
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 SOLANGE Baez Measurements Intervals Morse Rate: 57 P: 36 OK: 271 QRS: -57 QRSD: 136 T: 22 QT: 483 QTc: 471 Interpretive Statements Sinus bradycardia Prolonged OK interval RBBB and LAFB Electronically Signed On 01-02-2025 12:34:[address] SOLANGE Baez Please click the below link to view image of tracing.
[2025-01-01] MEDS ORDERED: ASPI-1265 PO (11:18)
[2025-01-01] MEDS ORDERED: NITR0.4T51 SL (11:25)
[2025-01-01] MEDS ORDERED: LIDOcaine 1% (10mg/ml) 2ml vial ONE (13:54)
[2025-01-01] MEDS ORDERED: fentaNYL/PF 50MCG/1 ML 2ML syringe ONE (13:55)
[2025-01-01] MEDS ORDERED: verapamil 2.5 mg/ml inj IV ONE (13:55)
[2025-01-01] MEDS ORDERED: midazolam 1 mg/ML 2ml injection ONE ×2 (13:55→14:31)
[2025-01-01] MEDS ORDERED: nitroGLYCERIN 500mcg/5mL D5W 0 ML IV ONE (13:55)
[2025-01-01] MEDS ORDERED: heparin 1,000unit/ml 10ml vial 0 ML ONE (13:55)
[2025-01-01] MEDS ORDERED: LIDOcaine 1% 30ml preserv. free vial ONE (14:26)
--- NOTE | 2025-01-01 14:49 | CARDIAC CATH REPORT ---
Cardiac Cath Report Providers to CC CC: ANA KAY MD Procedure Comments: 1. Selective Graft Angiography 3. Left Femoral artery access 4. Left femoral artery angiography 5. Closure of femoral artery with Perclose x 1 Brief History/Indications: 84yo man with HTN, HLD, Afib, CAD(s/p 2vCABG, PCI SVG-RCA) with recurrent chest pains brought to re-image the SVG-RCA Graft. Techniques: After informed consent was obtained, the patient was brought to the cardiac catheterization laboratory and prepped and draped in usual sterile fashion for left heart catheterization and other procedures mentioned above. The left groin was anesthetized with 1% Lidocaine and the femoral artery accessed via the Seldinger technique after which a 6Fr sheath was placed. Through this an MPA was used to engage the coronary artery bypass graft. At the conclusion of the case the sheath was removed and hemostasis obtained with a Perclose device. Findings Findings: Limited angiography of the SVG-RCA: SVG-RCA: Appears to be a string sign after the ostial portion. Given prior intervention, exchanged for an MPA guide. Attempted to wire into the vein graft with a Choice PT wire, however, unable to do so. After several attempts, decided to abort further attempts as it appears to be chronically occluded. Results Results: 1. Unable to cross SVG-RCA graft, appears to be chronically occluded 2. LFA Access, closed with Perclose (Rt COAL DELIVERER stent) RECOMMENDATIONS: 1. Recommend cont uptitration of max-tolerated GDMT FELIPA KAY MD Jan 01, 2025 14:49
[2025-01-01] MEDS ORDERED: HYDROcodone/acetaminophen 5mg/325mg tablet PO PRN (15:35)
[2025-01-01] MEDS: HYDROcodone/acetaminophen 10/325mg tab PO PRN (15:37)
== END 2025-01-01 17:15 | disposition home or self-care (01) ==
LOC: SSTAY O 10:00
PROVIDERS: ATTEND Student in an Organized Health Care Education/Training Program
DX: I25.10 Atherosclerotic heart disease of native coronary artery without angina pectoris (principal); I10 Essential (primary) hypertension; G47.33 Obstructive sleep apnea (adult) (pediatric); E78.5 Hyperlipidemia, unspecified; K21.9 Gastro-esophageal reflux disease without esophagitis; I73.9 Peripheral vascular disease, unspecified; I48.91 Unspecified atrial fibrillation; Z79.01 Long term (current) use of anticoagulants; Z98.890 Other specified postprocedural states
CPT/HCPCS: 36415; 80048; 85025; 85610; 85730; 93005; 93455; 99152; A6258; C1751; C1760; C1769; C1894; J1644; J2003; J2250; J3010; J7030; Q0163; Q9967; Z7610; 85008; 99153; J3490